=== PATIENT | female | born 1995 | race Caucasian/White ===

== ENCOUNTER → 2019-10-01 | Outpatient (CLI) | payer BC ==
--- NOTE | 2019-10-01 17:31 | Diagnostic Imaging Report ---
INDICATION: Left foot pain AP, oblique, and lateral views of the left foot are obtained. No fracture or acute bony abnormality seen. Joint spaces are unremarkable. There are postoperative changes in the distal tibia and fibula. IMPRESSION: No acute finding. Dictated by: Dictated on workstation # [id number]
== END ==
LOC: RAD FS 14:07
PROVIDERS: ATTEND Family Medicine
DX: S92.309A Fracture of unspecified metatarsal bone(s), unspecified foot, initial encounter for closed fracture (principal)
CPT/HCPCS: 73630

== ENCOUNTER → 2020-08-19 | Outpatient (CLI) | payer BC | LOC: LABNPT 14:48 | PROVIDERS: ATTEND Family Medicine | DX: R10.9 Unspecified abdominal pain (principal) | CPT/HCPCS: 87088 ==

== ENCOUNTER → 2021-11-30 | Outpatient (CLI) | payer OTHER ==
--- NOTE | 2021-11-30 18:02 | Diagnostic Imaging Report ---
EXAMINATION: Left ankle radiographs, 3 views. COMPARISON: None. HISTORY: 26-year-old female, left ankle pain. Twisting injury. FINDINGS: There is a fixation screw in the medial malleolus and sideplate and screw fixation hardware at the level of the distal fibular diaphysis. The hardware appears intact. There is irregularity of the medial malleolus which likely relates to sequela of prior fracture. The alignment of the ankle mortise is unremarkable. There is a contour abnormality of the posterior malleolus likely relating to prior fracture. There is no definite acute fracture. There is very mild degenerative type calcaneal enthesopathy. There is no tibiotalar joint effusion or tibiotalar joint space loss. IMPRESSION: 1. No identified definite acute fracture. 2. Irregularity of the medial malleolus and posterior malleolus most likely relating to prior fractures. 3. Intact fixation screw in the medial malleolus and sideplate and screw fixation hardware at the level of the distal fibula. Dictated by: Dictated on workstation # [id number]
== END ==
LOC: RAD FS 15:59
PROVIDERS: ATTEND Registered Nurse Emergency
DX: M25.572 Pain in left ankle and joints of left foot (principal)
CPT/HCPCS: 73610